=== PATIENT | female | born 1960 | race Caucasian/White ===

== ENCOUNTER → 2017-02-06 | Outpatient (CLI) | payer OTHER ==
[~2017-02-06] MED LIST: ALPR0.5T3 PO; ASPI81CH CHEW; ATOR1TAB18 PO; BUPR150CR PO; METO-309 PO; PLAV75TA29 PO; VITA250T5 PO
[2017-02-06 07:06] LABS: AUTOMATED NEUTROPHIL # 3.4 TH/MM3 (1.8-7.7); BASOPHIL # 0.1 TH/MM3 (0-0.2); BASOPHIL % 0.9 % (0.0-2.0); EOSINOPHIL # 0.1 TH/MM3 (0-0.4); EOSINOPHIL % 1.7 % (0.0-4.0); HEMATOCRIT 43.1 % (35.0-46.0); HEMO FLAGS DIFF FINAL; LYMPH % 35.7 % (9.0-44.0); LYMPHOCYTE # 2.2 TH/MM3 (1.0-4.8); MEAN CELL VOLUME 82.6 FL (80.0-100.0); MEAN CORPUSCULAR HEMOGLOBIN 27.6 PG (27.0-34.0); MEAN CORPUSCULAR HGB CONC 33.3 % (32.0-36.0); MONO % 8.4 % (0.0-8.0); NEUT % 53.3 % (16.0-70.0); PLATELET COUNT 219 TH/MM3 (150-450); RED BLOOD COUNT 5.22 MIL/MM3 (4.00-5.30); RED CELL DISTRIBUTION WIDTH 13.8 % (11.6-17.2); WHITE BLOOD COUNT 6.3 TH/MM3 (4.0-11.0)
[2017-02-06 07:38] LABS: ANION GAP 7 MEQ/L (5-15); AST (GOT) 14 U/L (15-37); BICARBONATE 28.1 MEQ/L (21.0-32.0); BLOOD UREA NITROGEN 18 MG/DL (7-18); CHLORIDE 104 MEQ/L (98-107); GLOMERULAR FILTRATION RATE 89 ML/MIN (>89); GLUCOSE,FASTING 108 MG/DL (74-99); POTASSIUM 4.1 MEQ/L (3.5-5.1); SODIUM (NA) 139 MEQ/L (136-145)
[2017-02-06 07:51] LABS: ALKALINE PHOSPHATASE 77 U/L (45-117); ALT (GPT) 26 U/L (10-53); HDL CHOLESTEROL 42.9 MG/DL (40.0-60.0); LDL CHOLESTEROL 77 MG/DL (0-99); TOTAL BILIRUBIN ADULT 0.4 MG/DL (0.2-1.0)
== END ==
LOC: CLAB 06:46
PROVIDERS: ATTEND Family Medicine
DX: G56.00 Carpal tunnel syndrome, unspecified upper limb (principal); K64.9 Unspecified hemorrhoids; E78.2 Mixed hyperlipidemia; A59.9 Trichomoniasis, unspecified; I25.2 Old myocardial infarction
CPT/HCPCS: 36415; 80053; 80061; 84443; 85025

== ENCOUNTER → 2017-04-30 | Outpatient (CLI) | payer OTHER ==
[~2017-04-30] MED LIST changes: +AMLO5TAB2 PO; +PRED10 PO; +VIST25CA PO
--- NOTE | 2017-04-30 08:37 | RADRPT ---
EXAM DATE/TIME: 04/30/2017 00:00 [facility] COMPARISON: No previous studies available for comparison. INDICATIONS : Pain in both lower extremities, CAD TECHNIQUE: Five-station segmental examination of the lower extremities was performed. Pulsed-cuff waveform tracings and pressures were recorded. Ankle-brachial indices and toe-brachial indices were calculated. PRESSURES (mmHg): Brachial (arm): Right 131 Left 133 Lower Thigh: Right 160 Left 161 Calf: Right 174 Left 153 Ankle: Right 136 Left 150 Toe: Right 113 Left 97 ERICKSON: Right 1.02 Left 1.13 TBI: Right 0.85 Left 0.73 PULSED CUFF WAVEFORMS: Demonstrate normal amplitude bilaterally. CONCLUSION: 1. Normal ankle brachial indices. Toe brachial indices are also normal Severiano Flores MD on April 30, 2017 at 8:35 Board Certified Radiologist. This report was verified electronically.
== END ==
LOC: HCAV 07:50
PROVIDERS: ATTEND Family Medicine
DX: I25.118 Atherosclerotic heart disease of native coronary artery with other forms of angina pectoris (principal); M79.604 Pain in right leg; Z98.890 Other specified postprocedural states
CPT/HCPCS: 93923

== ENCOUNTER 2017-10-14 20:23 | Emergency (ER) | payer SELFPAY ==
[~2017-10-14 20:23] MED LIST changes: +ASPI-516 CHEW; -ASPI81CH CHEW; -ATOR1TAB18 PO; +ATOR80TA45 PO
[2017-10-14 20:31] VITALS: BP 194/81; PULSE 71; RESP 18; TEMP 98.3; O2SAT 96
[2017-10-14 21:50] LABS: AUTOMATED NEUTROPHIL # 3.8 TH/MM3 (1.8-7.7); BASOPHIL % 0.7 % (0.0-2.0); EOSINOPHIL % 0.8 % (0.0-4.0); HEMATOCRIT 39.6 % (35.0-46.0); HEMOGLOBIN 13.1 GM/DL (11.6-15.3); LYMPH % 33.1 % (9.0-44.0); LYMPHOCYTE # 2.1 TH/MM3 (1.0-4.8); MEAN CELL VOLUME 81.6 FL (80.0-100.0); MEAN CORPUSCULAR HEMOGLOBIN 26.9 PG (27.0-34.0); MEAN PLATELET VOLUME 7.8 FL (7.0-11.0); MONO % 6.1 % (0.0-8.0); MONOCYTE # 0.4 TH/MM3 (0-0.9); NEUT % 59.3 % (16.0-70.0); PLATELET COUNT 220 TH/MM3 (150-450); RED BLOOD COUNT 4.86 MIL/MM3 (4.00-5.30); WHITE BLOOD COUNT 6.4 TH/MM3 (4.0-11.0)
[2017-10-14 22:02] LABS: PROTHROMBIN TIME - PATIENT 9.9 SEC (9.8-11.6)
[2017-10-14 22:10] LABS: TROPONIN I LESS THAN 0.02 NG/ML (0.02-0.05)
[2017-10-14 22:29] LABS: BICARBONATE 26.8 MEQ/L (21.0-32.0); BLOOD UREA NITROGEN 16 MG/DL (7-18); CALCIUM 9.4 MG/DL (8.5-10.1); CHLORIDE 104 MEQ/L (98-107); CREATININE 0.68 MG/DL (0.50-1.00); GLOMERULAR FILTRATION RATE 90 ML/MIN (>89); GLUCOSE,RANDOM 115 MG/DL (74-106); MAGNESIUM 1.9 MG/DL (1.5-2.5); SODIUM (NA) 140 MEQ/L (136-145)
--- NOTE | 2017-10-14 22:46 | RADRPT ---
EXAM DATE/TIME: 10/14/2017 21:53 [facility] COMPARISON: No previous studies available for comparison. INDICATIONS : Chest pain, shortness of breath. MEDICAL HISTORY : Hypertension. SURGICAL HISTORY : Coronary artery stent. ENCOUNTER: Initial ACUITY: 1 day PAIN SCORE: 7/10 LOCATION: chest midline. FINDINGS: PA and lateral views of the chest demonstrate the lungs to be symmetrically aerated without evidence of mass, infiltrate or effusion. The cardiomediastinal contours are unremarkable. Osseous structure s are intact. CONCLUSION: No acute disease. Kevin Carvalho MD on October 14, 2017 at 22:43 Board Certified Radiologist. This report was verified electronically.
--- NOTE | 2017-10-15 20:35 | EKG ---
Date Performed: 10/14/2017 Time Performed: 21:11:31 PTAGE: 57 years EKG: SINUS BRADYCARDIA BORDERLINE ECG PREVIOUS TRACING : 06/07/2016 05.25 Since the previous tracing, no significant change noted DOCTOR: Kemar Dainelle Interpretating Date/Time 10/15/2017 20:33:59
--- NOTE | 2017-10-16 08:56 | PD ---
HPI Chief Complaint: Hypertension Time Seen by Provider: 20:31 Travel History International Travel<30 days: No Contact w/Intl Traveler<30days: No Traveled to known affect area: No History of Present Illness HPI 57-year-old female presents emergency department for evaluation of elevated blood pressure, chest pain, low back pain. This is been worsening over the last couple days but more worse today and has caused her to be concerned. Denies any nausea vomiting. No diaphoresis. No sensation of lightheadedness. She has no other symptoms to report. PFSH Past Medical History Blood Disorders: No Bipolar Disorder: Yes Depression: Yes Heart Rhythm Problems: No Cancer: No Cardiac Catheterization: No Cardiovascular Problems: Yes (was here 5 years ago w/ cp) High Cholesterol: No Chemotherapy: No Congestive Heart Failure: No Diabetes: No Endocrine: No Gastrointestinal Disorders: Yes Genitourinary: No Headaches: Yes Hiatal Hernia: Yes (REPAIR X3) Hypertension: Yes Immune Disorder: No Musculoskeletal: No Psychiatric: Yes (BIPOLAR) Reproductive: No Respiratory: Yes Radiation Therapy: No Menopausal: Yes Tubal Ligation: Yes Past Surgical History Abdominal Surgery: Yes (RIGHT INGUINAL HERNIA X 3) Section: Yes (x 4) Coronary Artery Bypass Graft: No Gynecologic Surgery: Yes (4 C-SECTIONS) Other Surgery: Yes (hernia repair) Social History Alcohol Use: No Tobacco Use: Yes (1- 07 28/2 ppd ) Substance Use: No Allergies-Medications (Allergen,Severity, Reaction): Coded Allergies: No Known Allergies (Verified , 04/03/17) Reported Meds & Prescriptions Reported Meds & Active Scripts Active Vistaril (Hydroxyzine Pamoate) 25 Mg Cap 25 Mg PO HS Prednisone 10 Mg Tab 10 Mg PO DAILY 7 Days Amlodipine (Amlodipine Besylate) 5 Mg Tab 5 Mg PO DAILY Lopressor (Metoprolol Tartrate) 50 Mg Tab 50 Mg PO BID Atorvastatin (Atorvastatin Calcium) 80 Mg Tab 80 Mg PO HS Plavix (Clopidogrel Bisulfate) 75 Mg Tab 75 Mg PO DAILY Wellbutrin SR 12 HR (Bupropion HCl) 150 Mg Tab 150 Mg PO Q12HR Reported Alprazolam 0.5 Mg Tab 0.5 Mg PO Q8H PRN Aspirin 81 Mg Chew 81 Mg CHEW DAILY Vitamin B-12 (Cyanocobalamin) 250 Mcg Tab 250 Mcg PO DAILY Review of Systems Except as stated in HPI: all other systems reviewed are Neg Physical Exam Narrative Well-nourished, nontoxic-appearing female patient in no acute distress. Even respirations. Normal heart rate. Moves all extremities. She speaks to me clearly. Data Data Last Documented VS Vital Signs Date Time Temp Pulse Resp B/P (MAP) Pulse Ox O2 Delivery O2 Flow Rate FiO2 10/14/17 20:31 98.3 71 18 194/81 (118) 96 Orders Orders Electrocardiogram (10/14/17 20:34) Basic Metabolic Panel (Bmp) (10/14/17 20:34) Ckmb (Isoenzyme) Profile (10/14/17 20:34) Complete Blood Count With Diff (10/14/17 20:34) Magnesium (Mg) (10/14/17 20:34) Prothrombin Time / Inr (Pt) (10/14/17 20:34) Act Partial Throm Time (Ptt) (10/14/17 20:34) Troponin I (10/14/17 20:34) Chest, Pa & Lat (10/14/17 20:34) Labs Laboratory Tests Test 10/14/17 21:08 White Blood Count 6.4 TH/MM3 Red Blood Count 4.86 MIL/MM3 Hemoglobin 13.1 GM/DL Hematocrit 39.6 % Mean Corpuscular Volume 81.6 FL Mean Corpuscular Hemoglobin 26.9 PG Mean Corpuscular Hemoglobin Concent 33.0 % Red Cell Distribution Width 14.0 % Platelet Count 220 TH/MM3 Mean Platelet Volume 7.8 FL Neutrophils (%) (Auto) 59.3 % Lymphocytes (%) (Auto) 33.1 % Monocytes (%) (Auto) 6.1 % Eosinophils (%) (Auto) 0.8 % Basophils (%) (Auto) 0.7 % Neutrophils # (Auto) 3.8 TH/MM3 Lymphocytes # (Auto) 2.1 TH/MM3 Monocytes # (Auto) 0.4 TH/MM3 Eosinophils # (Auto) 0.0 TH/MM3 Basophils # (Auto) 0.0 TH/MM3 CBC Comment DIFF FINAL Differential Comment Prothrombin Time 9.9 SEC Prothromb Time International Ratio 1.0 RATIO Activated Partial Thromboplast Time 25.2 SEC Blood Urea Nitrogen 16 MG/DL Creatinine 0.68 MG/DL Random Glucose 115 MG/DL Calcium Level 9.4 MG/DL Magnesium Level 1.9 MG/DL Sodium Level 140 MEQ/L Potassium Level 3.3 MEQ/L Chloride Level 104 MEQ/L Carbon Dioxide Level 26.8 MEQ/L Anion Gap 9 MEQ/L Estimat Glomerular Filtration Rate 90 ML/MIN Total Creatine Kinase 78 U/L Troponin I LESS THAN 0.02 NG/ML MDM Medical Decision Making Medical Screen Exam Complete: Yes Emergency Medical Condition: Yes Medical Record Reviewed: Yes Differential Diagnosis Hypertension versus hypertensive urgency versus electrolyte abnormality versus normal exam Narrative Course 57-year-old female presents emergency department for evaluation of elevated blood pressure, chest pain and low back pain. Patient appears without distress. Vital signs are stable. She is hypertensive. Workup is initiated in triage. Prior to bed placement, patient chooses to leave. AMA: The risks of leaving against medical advice without further evaluation treatment were discussed with the patient. These risks include cardiac dysfunction, cardiac dysrhythmia, possible heart attack, possible stroke or . The patient indicated understanding of these risks and appeared to have the capacity to make this decision. Diagnosis Primary Impression: Chest pain, atypical Additional Impression: Benign hypertension Patient Instructions: General Instructions Departure Forms: Tests/Procedures Disposition: 07 AGAINST MEDICAL ADVICE Condition: Stable Heather AlanP Oct 16, 2017 08:56
== END 2017-10-15 00:05 | disposition left against medical advice (07) ==
LOC: NED 20:23
DX: I10 Essential (primary) hypertension (principal); R07.89 Other chest pain; M54.5 Low back pain; F17.200 Nicotine dependence, unspecified, uncomplicated; F31.9 Bipolar disorder, unspecified; Z79.02 Long term (current) use of antithrombotics/antiplatelets; Z79.899 Other long term (current) drug therapy
CPT/HCPCS: 71046; 80048; 82550; 83735; 84484; 85025; 85610; 85730; 93005